=== PATIENT | male | born 1950 | race Caucasian/White ===

== ENCOUNTER 2020-09-25 08:20 | Day surgery (SDC) | payer MEDICARE ==
[2020-09-19 14:37] LABS: BASOPHILS % (AUTO) 0.4 % (0.0-5.0); EOSINOPHILS % (AUTO) 1.4 % (0.0-8.0); HEMATOCRIT 43.7 % (42-54); LYMPHOCYTES % (AUTO) 37.9 % (21.0-51.0); MEAN CORPUSCULAR HEMOGLOBIN 28.9 pg (27.0-33.0); MEAN CORPUSCULAR HGB CONC 33.4 g/dL (32.0-36.0); MEAN CORPUSCULAR VOLUME 86.5 fL (79-99); MONOCYTES % (AUTO) 7.4 % (3.0-13.0); NEUTROPHILS % (AUTO) 52.4 % (40.0-77.0); PLATELET COUNT (AUTO) 284 K/uL (130-400); RED BLOOD CELL COUNT(AUTO) 5.05 MIL/uL (4.50-6.20); RED CELL DISTRIBUTION WIDTH 13.6 % (11.0-15.5)
[2020-09-19 14:38] LABS: APPEARANCE,URINE Clear (CLEAR); BILIRUBIN,URINE Negative (NEGATIVE); COLOR,URINE Yellow (YELLOW); GLUCOSE, URINE (UA) Negative (NEGATIVE); KETONES,URINE Negative (NEGATIVE); LEUKOCYTE ESTERASE ,URINE Trace (NEGATIVE); NITRATE,URINE Negative (NEGATIVE); OCCULT BLOOD,URINE Negative (NEGATIVE); PROTEIN,URINE Negative (NEGATIVE); UROBILINOGEN,URINE 0.2 mg/dL (0.2-1.0)
[2020-09-19 14:47] LABS: BACTERIA,URINE Few /HPF (None Seen); MUCUS,URINE Few LPF (None Seen); RBC,URINE 0-1 /HPF (0-1); SQUAMOUS EPITHELIAL CELL,UR Few /HPF (0-2)
[2020-09-19 15:23] LABS: CREATININE 0.9 mg/dL (0.5-1.5); POTASSIUM 3.7 mmol/L (3.5-5.1)
--- NOTE | 2020-09-24 14:00 | NUR ---
RE: ABNORMAL LABS REPORTED ELEVATED WBC 11.[address] DR ARIAS/ARIC. NO NEW ORDERS RECEIVED. PATIENT ON ANTIBIOTICS.
[2020-09-24 15:56] VITALS: BP 139/86
--- NOTE | 2020-09-24 16:00 | NUR ---
RE: ABNORMAL EKG REPORTED ABNORMAL EKG TO DR SCHWARTZ, NO NEW ORDERS RECEIVED.
--- NOTE | 2020-09-24 16:45 | NUR ---
ARIC AT DR. MIN OFFICE NOTIFIED THAT PT TOOK ASPIRIN TODAY. PER ARIC OK TO PROCEED BUT SHE WILL NOTIFY DR. ARIAS.
[~2020-09-25] VITALS: Ht 177.8 cm; Wt 123.6 kg
[2020-09-25] VITALS (17 sets, daily range): BP systolic 91–132; BP diastolic 54–78
[2020-09-25] MEDS: CEFTRIAXONE SODIUM 1 GM IVP SCH ×2 (06:00→11:05)
[~2020-09-25 08:20] MED LIST: AEC81 PO; ATOR40TA71 PO; FOLI0.8C PO; GLYB5TAB8 PO; HYDR25TA PO; INSU3INS3 SQ; LEVO500T89 PO; METF-446 PO; QUIN40TA19 PO; TAMS-1 PO
[2020-09-25] MEDS ORDERED: SODIUM CHLORIDE 0.9% 1000ML 1,000 ML IV ONE (08:47)
[2020-09-25] MEDS: GENTAMICIN 80 MG/NS 100 ML PB 100 ML IV SCH ×2 (10:00→10:58)
[2020-09-25] MEDS ORDERED: LIDOCAINE PF 2% 5ML ABBOJECT ONE (10:41)
[2020-09-25] MEDS ORDERED: PROPOFOL 10 MG/ML 20ML VIAL IV ONE (10:42)
[2020-09-25] MEDS ORDERED: MIDAZOLAM HCL 1 MG/ML 2ML VIAL ONE (10:42)
[2020-09-25] MEDS ORDERED: FENTANYL CITRATE PF 50 MCG/1 ML 2ML VIAL ONE (10:42)
--- NOTE | 2020-09-25 13:30 | NUR ---
pt discharged home- no pain. no rectal bleeding. printed and verbal instructions were given to pt and his . no acute distress noted. to car via wheelchair. awake alert and oriented. no n/v
== END 2020-09-25 13:30 | disposition home or self-care (01) ==
LOC: DAH 08:20
PROVIDERS: ATTEND Urology
DX: N40.0 Benign prostatic hyperplasia without lower urinary tract symptoms (principal); R97.20 Elevated prostate specific antigen [PSA]; I10 Essential (primary) hypertension; E11.9 Type 2 diabetes mellitus without complications; Z79.899 Other long term (current) drug therapy; Z20.828 Contact with and (suspected) exposure to other viral communicable diseases
CPT/HCPCS: 36415; 55700; 71045; 76942; 80048; 81001; 82948 ×2; 85025; 87077; 87088; 87186; 93005; A4215 ×2; A4216; A4221; A4222; A4223 ×3; A4606; A4663; A6260; C9803; J0696; J1580; J2001; J2250; J2704; J3010; J7030; J7120; U0003